=== PATIENT | male | born 1960 | race Asian ===

== ENCOUNTER 2021-01-03 09:17 | Emergency (ER) | payer MEDICAID, SELFPAY ==
[~2021-01-03] VITALS: Ht 157.5 cm; Wt 63.5 kg
[2021-01-03 09:26] VITALS: Ht 157.5 cm; Wt 63.5 kg
[2021-01-03 11:05] LABS: BASOPHIL % 0.9 % (0.2-1.5); PLATELET COUNT 218 x10^3mcL (152-348); RED CELL DISTRIBUTION WIDTH 12.7 % (12.1-16.2)
[2021-01-03 11:30] LABS: CALCIUM 9.6 mg/dL (8.5-10.1); CARBON DIOXIDE 29.9 mmol/L (21-32); CHLORIDE SERUM 101 mmol/L (98-107); CREATININE SERUM 1.2 mg/dL (0.7-1.3); GFR1 > 60 mL/min; GLUCOSE SERUM 104 mg/dL (74-106); POTASSIUM SERUM 4.2 mmol/L (3.5-5.1); SODIUM SERUM 137 mmol/L (136-145)
[2021-01-03 11:40] LABS: ALBUMIN 4.3 g/dL (3.4-5.0); ALKALINE PHOSPHATASE 76 U/L (46-116); ALT/SGPT 32 U/L (16-63); AST/SGOT 11 U/L (15-37); BILIRUBIN TOTAL 0.55 mg/dL (0.20-1.00); CHOLESTEROL 215 mg/dL (<200); HDL CHOLESTEROL 47 mg/dL (40-60); PHOSPHOROUS 3.2 mg/dL (2.5-4.9); TOTAL PROTEIN, SERUM 8.2 g/dL (6.4-8.2); URIC ACID 4.9 mg/dL (3.5-7.2)
[2021-01-03] MEDS ORDERED: ULTRAM50 MG PO (11:54)
[2021-01-03] MEDS ORDERED: NAPROXEN375 MG PO (11:54)
[2021-01-03 12:19] VITALS: BP 141/86
== END 2021-01-03 12:19 | disposition home or self-care (01) ==
LOC: ED 09:17
PROVIDERS: Emergency Medicine
DX: S29.012A Strain of muscle and tendon of back wall of thorax, initial encounter (principal); R42 Dizziness and giddiness; Z20.822 Contact with and (suspected) exposure to COVID-19; X58.XXXA Exposure to other specified factors, initial encounter; Y93.89 Activity, other specified; Y92.89 Other specified places as the place of occurrence of the external cause; Y99.8 Other external cause status
CPT/HCPCS: U0003